=== PATIENT | male | born 1955 | race Caucasian/White ===

== ENCOUNTER 2021-07-24 16:48 | Inpatient (IN) | payer OTHER ==
[2021-07-24] MEDS ORDERED: Cefepime 2 GM VIAL ONE (17:42)
[2021-07-24 18:08] LABS: #Eosinphils 0.3 10x3/uL (0.0-0.5); #Monocytes 0.9 10x3/uL (0.0-1.1); #Neutrophils 5.3 10x3/uL (1.5-8.4); %Basophils 0.4 % (0.0-2.0); %Eosinophils 3.5 % (0.0-6.0); %Lymphocytes 9.7 % (18.0-47.0); Hemoglobin 12.4 g/dL (13.5-17.5); Mean Corpuscular HGB CONC 33.2 g/dL (32.0-36.0); Mean Corpuscular Hemoglobin 30.6 pg (27.0-33.0); Mean Corpuscular Volume 92.3 fl (81.2-95.1); Mean Platelet Volume 9.5 fl (7.4-10.4); Platelet Count 209 10x3/uL (150-450); RBC Distribution Width 12.3 % (11.5-14.5); Red Blood Cell (RBC) Count 4.05 10x6/uL (4.32-5.72); White Blood Cell (WBC) Count 7.1 10x3/uL (3.5-10.5)
[2021-07-24 18:24] LABS: ALT (SGPT) 21 U/L (8-55); AST (SGOT) 18 U/L (5-34); Albumin 4.1 g/dL (3.4-4.8); Alkaline Phosphatase 100 U/L (40-110); Anion Gap 13 mmol/L (10-20); BUN (Urea Nitrogen) 20 mg/dL (8.4-25.7); Bilirubin, Total 0.2 mg/dL (0.2-1.2); Calc. Creatinine Clearance 0 mL/min (70-130); Calcium 8.9 mg/dL (7.8-10.44); Carbon Dioxide 25 mmol/L (23-31); Chloride 104 mmol/L (98-107); Globulin 3.1 g/dL (2.4-3.5); Glucose 97 mg/dL (80-115); Potassium 4.4 mmol/L (3.5-5.1); Protein, Total 7.2 g/dL (5.8-8.1); Sodium 138 mmol/L (136-145)
[2021-07-24 18:26] LABS: Bilirubin Neg (Negative); Blood, Urine 10 (Negative); Clarity Clear (Clear); Glucose, Urine (Dipstick) Normal (Negative); Ketone, Urine Negative (Negative); Leukocyte Negative (Negative); Nitrite Negative (Negative); Protein, Urine (Dipstick) 30 mg/dl (Neg-Trace); Specific Gravity, Urine 1.025 (1.002-1.036); Urobilinogen Normal mg/dL (Less than 2)
[2021-07-24 18:38] LABS: Bacteria/HPF Rare-Few HPF (None Seen); Mucous/LPF 3+ LPF (<2+); RBC/HPF 0-3 HPF (0-3); Squamous Epithelial 0-3 HPF (0-3); WBC/HPF 0-3 HPF (0-3)
[2021-07-24 18:47] LABS: SARS-CoV-2 NAA Rapid Test Not Detected (NotDetected)
[2021-07-24] MEDS ORDERED: Dextrose 5% in Water 1,000 ML IV PRN (22:50)
[2021-07-24] MEDS ORDERED: Insulin Regular 300 UNITS/3 ML VIAL SC PRN (22:50)
[2021-07-24] MEDS ORDERED: Dextrose 50% Abboject 50 ML SYRINGE SLOW IVP PRN (22:50)
[2021-07-24] MEDS ORDERED: HumaLOG 300 UNITS/3 ML VIAL SC PRN (22:50)
[2021-07-24] MEDS ORDERED: Ondansetron PF 4 MG/2 ML Vial ONE (23:00)
[2021-07-24] MEDS ORDERED: Morphine 4 MG/ML VIAL ONE (23:01)
[2021-07-24] MEDS ORDERED: Acetaminophen 500 MG TAB ONE (23:02)
[2021-07-24 23:20] LABS: Magnesium 2.2 mg/dL (1.6-2.6)
[2021-07-25] MEDS ORDERED: Carvedilol 3.125 MG TAB PO SCH (00:45)
[2021-07-25] MEDS ORDERED: Atorvastatin Calcium 40 MG TAB PO SCH (00:45)
[2021-07-25] MEDS: Albuterol Sulfate 2.5 mg/3 ml Neb EZPAP SCH ×4 (01:00→21:41)
[2021-07-25 01:04] VITALS: BMI 33.5
[2021-07-25] MEDS ORDERED: Enoxaparin Sodium 40 MG/0.4 ML SYRINGE SC SCH (01:30)
[2021-07-25 04:01] LABS: #Eosinphils 0.2 10x3/uL (0.0-0.5); #Monocytes 0.9 10x3/uL (0.0-1.1); %Basophils 0.5 % (0.0-2.0); %Eosinophils 3.6 % (0.0-6.0); %Lymphocytes 14.6 % (18.0-47.0); %Monocytes 14.9 % (0.0-10.0); %Neutrophils 66.1 % (40.0-75.0); Hemoglobin 11.8 g/dL (13.5-17.5); Mean Corpuscular HGB CONC 32.5 g/dL (32.0-36.0); Mean Corpuscular Hemoglobin 30.1 pg (27.0-33.0); Mean Corpuscular Volume 92.6 fl (81.2-95.1); Mean Platelet Volume 9.7 fl (7.4-10.4); Platelet Count 210 10x3/uL (150-450); RBC Distribution Width 12.4 % (11.5-14.5); Red Blood Cell (RBC) Count 3.92 10x6/uL (4.32-5.72)
[2021-07-25 04:18] LABS: Anion Gap 14 mmol/L (10-20); BUN (Urea Nitrogen) 16 mg/dL (8.4-25.7); Calc. Creatinine Clearance 156 mL/min (70-130); Calcium 8.5 mg/dL (7.8-10.44); Carbon Dioxide 23 mmol/L (23-31); Chloride 107 mmol/L (98-107); Glucose 126 mg/dL (80-115); Potassium 3.8 mmol/L (3.5-5.1); Sodium 140 mmol/L (136-145)
[2021-07-25] MEDS: Cefepime 2 GM in Sodium Chloride 0.9% 100 ML IVPB SCH ×2 (05:39→18:14)
[2021-07-25] MEDS: Levothyroxine 150 MCG TAB PO SCH (05:40)
[2021-07-25] MEDS: VANCOMYCIN 1.75 GM/350 ML BAG 1.75 GM in Premix Bag 1 BAG IVPB SCH ×2 (05:40→18:14)
[2021-07-25] MEDS: Carvedilol 3.125 MG TAB PO SCH ×2 (06:02→18:10)
[2021-07-25] MEDS ORDERED: Morphine 4 MG/ML VIAL SLOW IVP PRN ×2 (08:12→17:48)
[2021-07-25] MEDS: carBAMazepine 200 MG TAB PO SCH ×2 (10:04→18:09)
[2021-07-25] MEDS: Aspirin 81 mg Enteric Coated Tablet PO SCH (10:04)
[2021-07-25] MEDS ORDERED: PROPOFOL 20 ML ONE (14:55)
[2021-07-25] MEDS ORDERED: Fentanyl 100 MCG/2 ML VIAL ONE (14:55)
[2021-07-25] MEDS ORDERED: ePHEDrine Sulfate 50 MG/10 ML VIAL ONE (15:53)
[2021-07-25] MEDS ORDERED: Ondansetron PF 4 MG/2 ML Vial ONE (16:10)
[2021-07-25] MEDS: Acetaminophen 325 MG TAB PO PRN (18:10)
[2021-07-25] MEDS: HYDROcodone/Acetaminophen 7.5/325 mg Tablet PO PRN ×2 (18:23→23:26)
[2021-07-25] MEDS: Enoxaparin Sodium 40 MG/0.4 ML SYRINGE SC SCH (23:15)
[2021-07-25] MEDS: Atorvastatin Calcium 40 MG TAB PO SCH (23:15)
[2021-07-26] MEDS: Albuterol Sulfate 2.5 mg/3 ml Neb EZPAP SCH ×4 (01:12→21:39)
[2021-07-26] MEDS: VANCOMYCIN 1.75 GM/350 ML BAG 1.75 GM in Premix Bag 1 BAG IVPB SCH ×3 (05:32→21:09)
[2021-07-26] MEDS: Cefepime 2 GM in Sodium Chloride 0.9% 100 ML IVPB SCH ×2 (05:32→16:33)
[2021-07-26] MEDS: Levothyroxine 150 MCG TAB PO SCH (05:33)
[2021-07-26 05:53] LABS: Vancomycin, Trough 5.5 ug/mL
[2021-07-26] MEDS: Ketoconazole 2% Cream 15 gm Tube TOP SCH (09:14)
[2021-07-26] MEDS: carBAMazepine 200 MG TAB PO SCH ×2 (09:15→16:33)
[2021-07-26] MEDS: Carvedilol 3.125 MG TAB PO SCH ×2 (09:15→16:33)
[2021-07-26] MEDS: Aspirin 81 mg Enteric Coated Tablet PO SCH (09:15)
[2021-07-26] MEDS: HYDROcodone/Acetaminophen 7.5/325 mg Tablet PO PRN ×2 (09:27→16:33)
[2021-07-26] MEDS: Atorvastatin Calcium 40 MG TAB PO SCH (21:09)
[2021-07-26] MEDS: Enoxaparin Sodium 40 MG/0.4 ML SYRINGE SC SCH (21:09)
[2021-07-26] MEDS: Acetaminophen 325 MG TAB PO PRN (21:17)
[2021-07-27] MEDS: Albuterol Sulfate 2.5 mg/3 ml Neb EZPAP SCH ×5 (04:30→19:52)
[2021-07-27] MEDS: VANCOMYCIN 1.75 GM/350 ML BAG 1.75 GM in Premix Bag 1 BAG IVPB SCH ×2 (04:52→20:24)
[2021-07-27] MEDS: Cefepime 2 GM in Sodium Chloride 0.9% 100 ML IVPB SCH ×2 (06:24→17:12)
[2021-07-27] MEDS: Levothyroxine 150 MCG TAB PO SCH (06:24)
[2021-07-27] MEDS: Acetaminophen 325 MG TAB PO PRN ×3 (08:17→22:24)
[2021-07-27] MEDS: carBAMazepine 200 MG TAB PO SCH ×2 (08:17→17:12)
[2021-07-27] MEDS: Aspirin 81 mg Enteric Coated Tablet PO SCH (08:17)
[2021-07-27] MEDS: Carvedilol 3.125 MG TAB PO SCH ×2 (08:17→17:12)
[2021-07-27] MEDS: Ketoconazole 2% Cream 15 gm Tube TOP SCH (08:18)
[2021-07-27] MEDS: HYDROcodone/Acetaminophen 7.5/325 mg Tablet PO PRN (09:07)
[2021-07-27 13:10] LABS: Vancomycin, Trough 29.6 ug/mL
[2021-07-27] MEDS ORDERED: Vancomycin 1 GM in Premix Bag 1 BAG IVPB PRN (13:40)
[2021-07-27] MEDS: Atorvastatin Calcium 40 MG TAB PO SCH (20:25)
[2021-07-27] MEDS: Enoxaparin Sodium 40 MG/0.4 ML SYRINGE SC SCH (20:25)
[2021-07-27 22:38] LABS: Vancomycin, Random 17.9 ug/mL (See Comment)
[2021-07-28] MEDS: Vancomycin 1.5 GRAM/300 ML BAG 1.5 GM in Premix Bag 1 BAG IVPB SCH ×2 (01:07→12:11)
[2021-07-28] MEDS: Albuterol Sulfate 2.5 mg/3 ml Neb EZPAP SCH ×4 (02:23→18:54)
[2021-07-28] MEDS: Cefepime 2 GM in Sodium Chloride 0.9% 100 ML IVPB SCH (05:16)
[2021-07-28] MEDS: Levothyroxine 150 MCG TAB PO SCH (05:18)
[2021-07-28] MEDS: Acetaminophen 325 MG TAB PO PRN ×2 (09:13→17:50)
[2021-07-28] MEDS: Ketoconazole 2% Cream 15 gm Tube TOP SCH (09:13)
[2021-07-28] MEDS: Carvedilol 3.125 MG TAB PO SCH ×2 (09:14→17:48)
[2021-07-28] MEDS: Aspirin 81 mg Enteric Coated Tablet PO SCH (09:14)
[2021-07-28] MEDS: carBAMazepine 200 MG TAB PO SCH ×2 (09:14→17:48)
[2021-07-28] MEDS: Rifampin 300 MG CAP PO SCH (20:18)
[2021-07-28] MEDS: Enoxaparin Sodium 40 MG/0.4 ML SYRINGE SC SCH (20:18)
[2021-07-28] MEDS: Atorvastatin Calcium 40 MG TAB PO SCH (20:18)
[2021-07-28] MEDS: Doxycycline 100 MG CAP PO SCH (20:19)
[2021-07-29 00:14] LABS: Vancomycin, Trough 16.3 ug/mL
[2021-07-29] MEDS: Albuterol Sulfate 2.5 mg/3 ml Neb EZPAP SCH ×4 (02:06→18:47)
[2021-07-29] MEDS: Levothyroxine 150 MCG TAB PO SCH (05:30)
[2021-07-29] MEDS: Doxycycline 100 MG CAP PO SCH ×2 (10:13→21:25)
[2021-07-29] MEDS: Aspirin 81 mg Enteric Coated Tablet PO SCH (10:13)
[2021-07-29] MEDS: carBAMazepine 200 MG TAB PO SCH ×2 (10:14→17:50)
[2021-07-29] MEDS: Acetaminophen 325 MG TAB PO PRN ×3 (10:14→21:53)
[2021-07-29] MEDS: Carvedilol 3.125 MG TAB PO SCH ×2 (10:15→17:50)
[2021-07-29] MEDS: Ketoconazole 2% Cream 15 gm Tube TOP SCH (10:15)
[2021-07-29] MEDS: Rifampin 300 MG CAP PO SCH ×2 (10:16→21:25)
[2021-07-29] MEDS ORDERED: Benzonatate 100 MG CAP PO PRN (13:02)
[2021-07-29] MEDS ORDERED: Furosemide 20 MG/2 ML VIAL SLOW IVP SCH (17:15)
[2021-07-29 18:51] LABS: #Eosinphils 0.4 10x3/uL (0.0-0.5); #Monocytes 0.7 10x3/uL (0.0-1.1); #Neutrophils 3.4 10x3/uL (1.5-8.4); %Basophils 0.7 % (0.0-2.0); %Eosinophils 6.8 % (0.0-6.0); %Lymphocytes 16.6 % (18.0-47.0); %Monocytes 12.6 % (0.0-10.0); %Neutrophils 62.2 % (40.0-75.0); Hemoglobin 12.6 g/dL (13.5-17.5); Mean Corpuscular HGB CONC 33.1 g/dL (32.0-36.0); Mean Corpuscular Hemoglobin 30.4 pg (27.0-33.0); Mean Platelet Volume 9.2 fl (7.4-10.4); Platelet Count 259 10x3/uL (150-450); RBC Distribution Width 12.5 % (11.5-14.5); Red Blood Cell (RBC) Count 4.14 10x6/uL (4.32-5.72); White Blood Cell (WBC) Count 5.5 10x3/uL (3.5-10.5)
[2021-07-29 18:58] LABS: ALT (SGPT) 21 U/L (8-55); AST (SGOT) 22 U/L (5-34); Albumin 4.3 g/dL (3.4-4.8); Alkaline Phosphatase 123 U/L (40-110); Anion Gap 13 mmol/L (10-20); BUN (Urea Nitrogen) 19 mg/dL (8.4-25.7); Bilirubin, Total 0.2 mg/dL (0.2-1.2); Calc. Creatinine Clearance 139 mL/min (70-130); Calcium 9.3 mg/dL (7.8-10.44); Carbon Dioxide 28 mmol/L (23-31); Chloride 104 mmol/L (98-107); Globulin 3.1 g/dL (2.4-3.5); Glucose 126 mg/dL (80-115); Magnesium 2.1 mg/dL (1.6-2.6); Potassium 3.9 mmol/L (3.5-5.1); Protein, Total 7.4 g/dL (5.8-8.1); Sodium 141 mmol/L (136-145)
[2021-07-29] MEDS: Betamethasone Val 0.1% Lotion 60 ML BOT TOP SCH (21:24)
[2021-07-29] MEDS: Atorvastatin Calcium 40 MG TAB PO SCH (21:25)
[2021-07-29] MEDS: Enoxaparin Sodium 40 MG/0.4 ML SYRINGE SC SCH (21:26)
[2021-07-29] MEDS: Fluticasone Propionate Nasal Spray 16 gm Bottle NASAL SCH (21:28)
[2021-07-30] MEDS: Albuterol Sulfate 2.5 mg/3 ml Neb EZPAP SCH ×4 (01:16→19:38)
[2021-07-30 04:50] LABS: #Basophils 0.1 10x3/uL (0.0-0.2); #Eosinphils 0.3 10x3/uL (0.0-0.5); #Monocytes 0.8 10x3/uL (0.0-1.1); #Neutrophils 2.9 10x3/uL (1.5-8.4); %Eosinophils 5.5 % (0.0-6.0); %Lymphocytes 19.2 % (18.0-47.0); %Monocytes 14.9 % (0.0-10.0); %Neutrophils 57.6 % (40.0-75.0); Hemoglobin 12.3 g/dL (13.5-17.5); Mean Corpuscular HGB CONC 33.3 g/dL (32.0-36.0); Mean Corpuscular Hemoglobin 30.3 pg (27.0-33.0); Mean Corpuscular Volume 90.9 fl (81.2-95.1); Mean Platelet Volume 9.4 fl (7.4-10.4); Platelet Count 228 10x3/uL (150-450); RBC Distribution Width 12.6 % (11.5-14.5); Red Blood Cell (RBC) Count 4.06 10x6/uL (4.32-5.72); White Blood Cell (WBC) Count 5.1 10x3/uL (3.5-10.5)
[2021-07-30 05:05] LABS: Anion Gap 12 mmol/L (10-20); BUN (Urea Nitrogen) 22 mg/dL (8.4-25.7); Calc. Creatinine Clearance 148 mL/min (70-130); Calcium 8.9 mg/dL (7.8-10.44); Carbon Dioxide 28 mmol/L (23-31); Chloride 106 mmol/L (98-107); Glucose 113 mg/dL (80-115); Magnesium 2.1 mg/dL (1.6-2.6); Sodium 142 mmol/L (136-145)
[2021-07-30] MEDS: Levothyroxine 150 MCG TAB PO SCH (06:03)
[2021-07-30] MEDS: Acetaminophen 325 MG TAB PO PRN ×2 (06:10→14:30)
[2021-07-30] MEDS: Ketoconazole 2% Cream 15 gm Tube TOP SCH (08:49)
[2021-07-30] MEDS: Carvedilol 3.125 MG TAB PO SCH ×2 (08:49→16:56)
[2021-07-30] MEDS: Furosemide 40 MG TAB PO SCH ×2 (08:49→14:23)
[2021-07-30] MEDS: Aspirin 81 mg Enteric Coated Tablet PO SCH (08:49)
[2021-07-30] MEDS: Betamethasone Val 0.1% Lotion 60 ML BOT TOP SCH ×2 (08:49→21:19)
[2021-07-30] MEDS: carBAMazepine 200 MG TAB PO SCH ×2 (08:49→16:56)
[2021-07-30] MEDS: Doxycycline 100 MG CAP PO SCH ×2 (08:49→21:02)
[2021-07-30] MEDS: Fluticasone Propionate Nasal Spray 16 gm Bottle NASAL SCH ×2 (08:49→21:01)
[2021-07-30] MEDS: Rifampin 300 MG CAP PO SCH ×2 (08:50→21:02)
[2021-07-30 12:08] LABS: Hemoglobin A1c 6.1 % (4.0-6.0)
[2021-07-30] MEDS: Atorvastatin Calcium 40 MG TAB PO SCH (21:01)
[2021-07-30] MEDS: Enoxaparin Sodium 40 MG/0.4 ML SYRINGE SC SCH (21:02)
[2021-07-31] MEDS: Albuterol Sulfate 2.5 mg/3 ml Neb EZPAP SCH ×4 (00:50→19:31)
[2021-07-31] MEDS: Acetaminophen 325 MG TAB PO PRN ×2 (04:03→19:32)
[2021-07-31 05:00] LABS: #Basophils 0.1 10x3/uL (0.0-0.2); #Eosinphils 0.3 10x3/uL (0.0-0.5); #Monocytes 0.7 10x3/uL (0.0-1.1); #Neutrophils 3.6 10x3/uL (1.5-8.4); %Basophils 0.9 % (0.0-2.0); %Eosinophils 5.3 % (0.0-6.0); %Lymphocytes 17.7 % (18.0-47.0); %Monocytes 12.5 % (0.0-10.0); %Neutrophils 61.9 % (40.0-75.0); Hemoglobin 12.8 g/dL (13.5-17.5); Mean Corpuscular HGB CONC 32.8 g/dL (32.0-36.0); Mean Corpuscular Hemoglobin 29.9 pg (27.0-33.0); Mean Corpuscular Volume 91.1 fl (81.2-95.1); Mean Platelet Volume 9.3 fl (7.4-10.4); Platelet Count 273 10x3/uL (150-450); RBC Distribution Width 12.7 % (11.5-14.5); Red Blood Cell (RBC) Count 4.28 10x6/uL (4.32-5.72); White Blood Cell (WBC) Count 5.8 10x3/uL (3.5-10.5)
[2021-07-31 05:05] LABS: Anion Gap 14 mmol/L (10-20); BUN (Urea Nitrogen) 20 mg/dL (8.4-25.7); Calc. Creatinine Clearance 144 mL/min (70-130); Calcium 8.9 mg/dL (7.8-10.44); Carbon Dioxide 29 mmol/L (23-31); Chloride 102 mmol/L (98-107); Glucose 115 mg/dL (80-115); Potassium 3.8 mmol/L (3.5-5.1); Sodium 141 mmol/L (136-145)
[2021-07-31] MEDS: Levothyroxine 150 MCG TAB PO SCH (05:08)
[2021-07-31] MEDS: Carvedilol 3.125 MG TAB PO SCH ×2 (08:56→15:53)
[2021-07-31] MEDS: Doxycycline 100 MG CAP PO SCH ×2 (08:56→19:33)
[2021-07-31] MEDS: carBAMazepine 200 MG TAB PO SCH ×2 (08:56→15:53)
[2021-07-31] MEDS: Aspirin 81 mg Enteric Coated Tablet PO SCH (08:56)
[2021-07-31] MEDS: Rifampin 300 MG CAP PO SCH ×2 (08:56→19:33)
[2021-07-31] MEDS: Furosemide 40 MG TAB PO SCH ×2 (08:56→15:53)
[2021-07-31] MEDS: HYDROcodone/Acetaminophen 7.5/325 mg Tablet PO PRN (08:57)
[2021-07-31] MEDS: Ketoconazole 2% Cream 15 gm Tube TOP SCH (10:08)
[2021-07-31] MEDS: Betamethasone Val 0.1% Lotion 60 ML BOT TOP SCH ×2 (10:08→19:34)
[2021-07-31] MEDS: Fluticasone Propionate Nasal Spray 16 gm Bottle NASAL SCH ×2 (10:08→19:34)
[2021-07-31] MEDS: Atorvastatin Calcium 40 MG TAB PO SCH (19:33)
[2021-07-31] MEDS: Enoxaparin Sodium 40 MG/0.4 ML SYRINGE SC SCH (19:34)
[2021-08-01] MEDS: Albuterol Sulfate 2.5 mg/3 ml Neb EZPAP SCH ×2 (01:00→07:00)
[2021-08-01 04:30] LABS: #Basophils 0.1 10x3/uL (0.0-0.2); #Eosinphils 0.3 10x3/uL (0.0-0.5); #Monocytes 0.7 10x3/uL (0.0-1.1); %Basophils 0.8 % (0.0-2.0); %Eosinophils 5.1 % (0.0-6.0); %Lymphocytes 19.6 % (18.0-47.0); %Monocytes 11.3 % (0.0-10.0); %Neutrophils 61.5 % (40.0-75.0); Hemoglobin 13.1 g/dL (13.5-17.5); Mean Corpuscular HGB CONC 33.4 g/dL (32.0-36.0); Mean Corpuscular Hemoglobin 29.9 pg (27.0-33.0); Mean Corpuscular Volume 89.5 fl (81.2-95.1); Mean Platelet Volume 9.5 fl (7.4-10.4); Platelet Count 260 10x3/uL (150-450); RBC Distribution Width 12.8 % (11.5-14.5); Red Blood Cell (RBC) Count 4.38 10x6/uL (4.32-5.72); White Blood Cell (WBC) Count 6.5 10x3/uL (3.5-10.5)
[2021-08-01 04:48] LABS: Anion Gap 15 mmol/L (10-20); BUN (Urea Nitrogen) 31 mg/dL (8.4-25.7); Calc. Creatinine Clearance 149 mL/min (70-130); Calcium 8.6 mg/dL (7.8-10.44); Carbon Dioxide 25 mmol/L (23-31); Chloride 107 mmol/L (98-107); Glucose 123 mg/dL (80-115); Magnesium 2.1 mg/dL (1.6-2.6); Potassium 3.5 mmol/L (3.5-5.1); Sodium 143 mmol/L (136-145)
[2021-08-01] MEDS: Levothyroxine 150 MCG TAB PO SCH (05:51)
[2021-08-01 07:33] VITALS: BP 120/69; TEMP 98.1
[2021-08-01] MEDS: Rifampin 300 MG CAP PO SCH (09:22)
[2021-08-01] MEDS: Carvedilol 3.125 MG TAB PO SCH (09:22)
[2021-08-01] MEDS: carBAMazepine 200 MG TAB PO SCH (09:22)
[2021-08-01] MEDS: Doxycycline 100 MG CAP PO SCH (09:22)
[2021-08-01] MEDS: Aspirin 81 mg Enteric Coated Tablet PO SCH (09:22)
[2021-08-01] MEDS: HYDROcodone/Acetaminophen 7.5/325 mg Tablet PO PRN (09:22)
[2021-08-01] MEDS: Furosemide 40 MG TAB PO SCH (09:22)
[2021-08-01] MEDS: Fluticasone Propionate Nasal Spray 16 gm Bottle NASAL SCH (09:23)
[2021-08-01] MEDS: Betamethasone Val 0.1% Lotion 60 ML BOT TOP SCH (09:23)
[2021-08-01] MEDS: Ketoconazole 2% Cream 15 gm Tube TOP SCH (09:23)
== END 2021-08-01 11:08 | disposition home or self-care (01) | DRG 638 ==
LOC: CSHERS 16:48 → CSHTELE 07-25 00:31 → EEVIPCON 07-25 00:31
PROVIDERS: ADMIT Family Medicine; ATTEND Family Medicine
PROC: 0J9P0ZZ Drainage of Left Lower Leg Subcutaneous Tissue and Fascia, Open Approach (ICD-10-PCS; principal; 2021-07-25)
PROC: 0HDLXZZ Extraction of Left Lower Leg Skin, External Approach (ICD-10-PCS; 2021-07-25)
DX: E11.628 Type 2 diabetes mellitus with other skin complications (principal); L03.116 Cellulitis of left lower limb; L02.416 Cutaneous abscess of left lower limb; Z20.822 Contact with and (suspected) exposure to COVID-19; G47.33 Obstructive sleep apnea (adult) (pediatric); I25.10 Atherosclerotic heart disease of native coronary artery without angina pectoris; B35.4 Tinea corporis; B35.3 Tinea pedis; R31.9 Hematuria, unspecified; B95.62 Methicillin resistant Staphylococcus aureus infection as the cause of diseases classified elsewhere; K21.9 Gastro-esophageal reflux disease without esophagitis; E89.0 Postprocedural hypothyroidism; L30.9 Dermatitis, unspecified; Z88.8 Allergy status to other drugs, medicaments and biological substances; Z79.82 Long term (current) use of aspirin; Z79.899 Other long term (current) drug therapy; Z79.890 Hormone replacement therapy; Z95.1 Presence of aortocoronary bypass graft; Z87.11 Personal history of peptic ulcer disease; Z90.49 Acquired absence of other specified parts of digestive tract; Z90.89 Acquired absence of other organs; Z87.891 Personal history of nicotine dependence; Z80.0 Family history of malignant neoplasm of digestive organs; Z86.16 Personal history of COVID-19
CPT/HCPCS: 36415; 36416; 71045; 80048; 80053; 80202; 81003; 81015; 83036; 83605; 83735; 83880; 84145; 84443; 85025; 87040; 87070; 87077; 87081; 87086; 87186; 87205; 87804; 93005; 93010; 94640; 94760; 94762; 96365; 96375; J0692; J1650; J1815; J1940; J2270; J2405; J2704; J3010; J3370; J3490; J7611; U0002